=== PATIENT | female | born 1995 | race Caucasian/White ===

== ENCOUNTER 2022-02-02 07:55 | Emergency (ER) | payer BC ==
[2022-02-02] MEDS ORDERED: Acetaminophen 325 MG TAB ONE (10:00)
[2022-02-02] MEDS ORDERED: Dexamethasone 10 MG/ML VIAL ONE (10:28)
[2022-02-02] MEDS ORDERED: Bicillin LA 1.2 MILLION UNITS/2 ML SYRINGE IM SCH (10:30)
== END 2022-02-02 10:52 | disposition home or self-care (01) ==
LOC: CSHERS 07:55
DX: B34.9 Viral infection, unspecified (principal); F17.210 Nicotine dependence, cigarettes, uncomplicated
CPT/HCPCS: 87804; 96372; 99283; J0561; J1100